=== PATIENT | female | born 1965 | race Caucasian/White ===

== ENCOUNTER 2020-01-04 13:48 | Outpatient (CLI) | payer BC, SELFPAY ==
--- NOTE | ~2020-01-04 | DEXA_ITS ---
Bone Density Report Name: Jhonny Rascon Age: 54 Sex: Female Ethnicity: White Date of : 1965 Indication: postmenopausal; Referring Provider: Amrit, Laura Study: Bone densitometry was performed. Exam Date: January 04, 2020 Accession number: [id number] Bone Density: Region BMD T-score Z-score Classification AP Spine (L1-L4) 0.892 -1.4 -0.3 Osteopenia Femoral Neck (Left) 0.655 -1.7 -0.7 Osteopenia Total Hip (Left) 0.742 -1.6 -0.9 Osteopenia Total Hip Bilateral Avg 0.726 -1.8 -1.0 Osteopenia Femoral Neck (Right) 0.606 -2.2 -1.1 Osteopenia Total Hip (Right) 0.710 -1.9 -1.2 Osteopenia World Health Organization criteria for BMD impression classify patients as: Normal (T-score at or above -1.0), Osteopenia (T-score between -1.0 and -2.5), or Osteoporosis (T-score at or below -2.5). 10-year Fracture Risk(1): Major Osteoporotic Fracture 7.5% Hip Fracture 1.1% Reported Risk Factors: [place] (), Neck BMD=0.606, BMI=20.5 (1) FRAX(R) Version 3.08. Fracture probability calculated for an untreated patient. Fracture probability may be lower if the patient has received treatment. Clinical Information Provided by Patient: Patient maximum height was 68.5 Menopause Age: 49 Onset of menses at age 13 Number of children 3 Impression: The patient has low bone mass, based on the Right Femoral Neck T-score. The patient has an estimated ten-year risk of hip fracture of 1.1% and an estimated ten-year risk of major fracture of 7.5%, based on the WHO FRAX algorithm. Discussion: BONE DENSITY IS LOW AT ONE OR MORE SKELETAL SITES. This patient's lowest T-score is low at one or more skeletal sites. It meets the World Health Organization's (WHO) criteria for ?low bone mass? (T-score between -1.0 and -2.5). The patient's 10-year risk of fracture as calculated by FRAX is less than the threshold where pharmacological therapy is recommended by the National Osteoporosis Foundation (NOF). However, all treatment decisions require clinical judgment and consideration of individual patient factors, including patient preferences, comorbidities, previous drug use, risk factors not captured in the FRAX model (e.g., frailty, falls, vitamin D deficiency, increased bone turnover, interval significant decline in bone density) and possible under or overestimation of fracture risk by FRAX. The patient should follow a healthful lifestyle (good nutrition with adequate calcium and vitamin D, and appropriate weight-bearing exercise). Follow-Up: Consider repeating this study in 2 to 3 years to reassess this patient's status, or sooner if there is some new clinical indication. Reported by: KARLA on 01/04/2020 2:18:00 PM. Reviewed, dictated and finalized at location AEster [email or web address]
== END 2020-01-04 13:49 | disposition home or self-care (01) ==
LOC: ANHIMG 13:51
PROVIDERS: PCP Chiropractor; Visit Provider Nurse Practitioner
DX: Z78.0 Asymptomatic menopausal state (principal); M85.89 Other specified disorders of bone density and structure, multiple sites
CPT/HCPCS: 77080

== ENCOUNTER 2022-07-01 10:08 | Outpatient (CLI) | payer BC, SELFPAY ==
--- NOTE | ~2022-07-01 | US_ITS ---
US abdomen limited INDICATION: Right upper quadrant pain PROCEDURE: Realtime right upper abdominal ultrasound. COMPARISON: No prior studies for comparison. FINDINGS: The pancreas is normal without focal mass or pancreatic ductal dilation. Liver echotexture is normal without focal mass or intrahepatic biliary dilatation. There is normal directional flow i n the portal vein. There is an echogenic foci in the gallbladder lumen without shadowing measuring 6 mm, likely small ga llbladder polyp. No gallbladder wall thickening, definite stones or pericholecystic fluid. Common bi le duct measures 1.5 mm. No sonographic Don's sign. IMPRESSION: 1: Gallbladder polyp measuring 6 mm. Reviewed, dictated and finalized at location A.
== END 2022-07-01 10:09 | disposition home or self-care (01) ==
PROVIDERS: PCP Registered Nurse; Visit Provider Registered Nurse
DX: R10.11 Right upper quadrant pain (principal); K82.4 Cholesterolosis of gallbladder
CPT/HCPCS: 76705

== ENCOUNTER 2022-07-19 11:13 | Outpatient (CLI) | payer BC, SELFPAY ==
--- NOTE | ~2022-07-19 | US_ITS ---
EXAMINATION: US axilla BI INDICATION: Bilateral axillary pain TECHNIQUE: Prior bilateral axillary ultrasound is performed. COMPARISON: None available FINDINGS: No suspicious cystic or solid mass is identified. No sonographic correlate is identified fo r the patient's reported axillary pain. IMPRESSION: 1. No specific sonographic correlate is identified for the patient's bilateral axillary pain. Further evaluation at this time should be based on clinical assessment. Continued follow-up physical examina tion is recommended. BI-RADS Category 1: Negative Reviewed, dictated and finalized at location A. IMPRESSION: 1. No specific sonographic correlate is identified for the patient's bilateral axillary pain. Further evaluation at this time should be based on clinical asse ssment. Continued follow-up physical examination is recommended. BI-RADS Category 1: Negative
== END 2022-07-19 11:14 | disposition home or self-care (01) ==
PROVIDERS: PCP Registered Nurse; Visit Provider Registered Nurse
DX: R22.33 Localized swelling, mass and lump, upper limb, bilateral (principal)
CPT/HCPCS: 76882

== ENCOUNTER 2023-03-29 10:20 | Outpatient (CLI) | payer BC, SELFPAY ==
--- NOTE | ~2023-03-29 | US_ITS ---
US right upper quadrant INDICATION: Gallbladder polyp PROCEDURE: Realtime right upper abdominal ultrasound. COMPARISON: No prior studies for comparison. FINDINGS: The pancreas is normal without focal mass or pancreatic ductal dilation. Liver echotexture is normal without focal mass or intrahepatic biliary dilatation. There is normal directional flow i n the portal vein. There is a 5 mm gallbladder polyp. No stones, gallbladder wall thickening or pericholecystic fluid. Common bile duct measures 3 mm. No sonographic Don's sign. IMPRESSION: 1: Gallbladder polyp measuring 5 mm. Reviewed, dictated and finalized at location L.
== END 2023-03-29 10:21 | disposition home or self-care (01) ==
PROVIDERS: PCP Registered Nurse
DX: K82.4 Cholesterolosis of gallbladder (principal)
CPT/HCPCS: 76705